=== PATIENT | male | born 1940 | race Caucasian/White ===

== ENCOUNTER → 2017-10-25 | Outpatient (CLI) | payer OTHER ==
--- NOTE | 2017-10-25 15:59 | RAD ---
Right knee, 3 views, 10/25/2017: HISTORY: Osteoarthritis There is mild narrowing of the lateral compartment of the knee joint with mild marginal spurring. Mild spurring is present the patellofemoral articulation. No fracture or dislocation is identified. No significant joint effusion is seen. Moderate scattered arterial calcifications are present. IMPRESSION: 1. Mild degenerative change. 2. No acute bony abnormality is detected. Chest, 2 views, 10/25/2017: HISTORY: Cough, COPD The heart size and pulmonary vascularity are normal. There is mild tortuosity of the thoracic aorta. No pulmonary infiltrate is seen. There is no evidence of pleural fluid. Nodular shadows projected over the lung bases are probably nipple shadows. Mild spurring is present in the spine. IMPRESSION: No acute cardiopulmonary abnormality is detected. Electronically signed by: Corey Conde MD (10/25/2017 3:56 PM) [facility]
== END | disposition home or self-care (01) ==
LOC: DXRAD 09:15
PROVIDERS: ATTEND Physician Assistant Medical
DX: M17.11 Unilateral primary osteoarthritis, right knee (principal); J44.9 Chronic obstructive pulmonary disease, unspecified; K21.9 Gastro-esophageal reflux disease without esophagitis
CPT/HCPCS: 71046; 73562

== ENCOUNTER → 2018-07-31 | Outpatient (CLI) | payer OTHER ==
--- NOTE | 2018-07-31 14:26 | RAD ---
Chest, 2 views, 07/31/2018: HISTORY: Weight loss Comparison is made to a study from 10/25/2017. The heart size is within normal limits. There is mild tortuosity of the thoracic aorta. There is minimal linear scarring or atelectasis in the posterior costophrenic angle on the right. No pulmonary consolidation is seen. There is no evidence of pleural fluid. Mild scattered spurs are present in the spine. IMPRESSION: Minimal right basilar linear scarring or atelectasis. Electronically signed by: Corey Conde MD (07/31/2018 2:23 PM) [facility]
== END | disposition home or self-care (01) ==
LOC: DXRAD 10:36
PROVIDERS: ATTEND Family Medicine
DX: I77.89 Other specified disorders of arteries and arterioles (principal); R63.4 Abnormal weight loss
CPT/HCPCS: 71046

== ENCOUNTER → 2018-08-03 | Outpatient (CLI) | payer OTHER ==
[2018-08-03 10:15] LABS: ALBUMIN 3.9 g/dL (3.4-5.0); ALBUMIN/GLOBULIN RATIO 1.1 (1.0-1.7); CREATININE 0.8 mg/dL (0.7-1.3); GFR 93.7; POTASSIUM 3.7 mmol/L (3.5-5.1); TOTAL BILIRUBIN 1.3 mg/dL (0.2-1.0); TOTAL PROTEIN 7.6 g/dL (6.4-8.2)
--- NOTE | 2018-08-03 12:58 | RAD ---
Complete abdominal ultrasound 08/03/2018 10:00 AM Clinical History: Nausea, abdominal pain, weight loss Technique: Ultrasound examination of the abdomen was performed, and multiple static images were submitted for review. Comparison: CT of the abdomen and pelvis July 25, 2012 Findings: Pancreas is poorly visualized. Portions of the aorta and IVC are grossly unremarkable. The gallbladder is partially visualized. Visualized portions of the gallbladder demonstrates no wall thickening, or stones. The common bile duct is within normal limits measuring 4 mm diameter. The liver appears to be normal in size measuring approximately 14.5 cm longitudinally. No focal hepatic lesions are seen. No biliary dilatation is identified. The right kidney is unremarkable in appearance measuring 12.6 cm in length. Left kidney is normal in appearance. The spleen is top normal measuring 11.8 cm longitudinal. IMPRESSION: 1. No acute intra-abdominal abnormality is identified 2. Top normal size of the spleen Electronically signed by: David Hung MD (08/03/2018 12:55 PM) [id number]
[2018-08-03 14:05] LABS: BACTERIA,URINE 0 /HPF (0-FEW); BILIRUBIN,URINE SMALL (NEG); CLARITY,URINE HAZY; COLOR,URINE AMBER; GLUCOSE,URINE NEG (NEG); NITRITE,URINE POS (NEG); RBC,URINE 0 /HPF (0-2); SQUAMOUS EPITHELIAL CELL,UR OCC /LPF; UROBILINOGEN,URINE 0.2 mg/dL (0.2 mg/dL); WBC,URINE 0 /HPF (0-4)
== END | disposition home or self-care (01) ==
LOC: US 09:34
PROVIDERS: ATTEND Internal Medicine Gastroenterology
DX: R11.0 Nausea (principal); R63.4 Abnormal weight loss; R10.9 Unspecified abdominal pain
CPT/HCPCS: 36415; 76700; 80053; 81001; 82140; 82150; 83690; 87086

== ENCOUNTER → 2018-08-10 | Outpatient (CLI) | payer OTHER ==
[~2018-08-10] MED LIST: IOHEXOL 240 MG/ML 50ML VIAL. ONE; IOHEXOL 300 MG/ML 75 ML VIAL. IV ONE
--- NOTE | 2018-08-10 16:15 | RAD ---
CT of the abdomen and pelvis with contrast, 08/10/2018: HISTORY: Abdominal pain, weight loss, nausea and vomiting Multidetector CT imaging was performed following oral and IV administration of contrast. There is mild bibasilar linear scarring and/or atelectasis. Coronary artery calcifications are noted. There appear to be calcifications in the region of the aortic valve as well as the mitral annulus. No hepatic abnormality is seen. The gallbladder is unremarkable. No pancreatic abnormality is seen. The spleen is at the upper limits of normal in size measuring 12.7 cm in length. It contains several calcifications. No renal abnormality is detected. There is moderate calcific plaquing of the abdominal aorta and its branches without evidence of aneurysm. No abdominal or pelvic adenopathy is seen. The prostate gland is enlarged measuring 6 cm in length. It contains calcifications. Colonic diverticula are present, most extensive in the sigmoid region. No paracolonic inflammatory process is seen. The bowel loops are not dilated. The appendix shows no abnormality. No free fluid or free air is evident in the abdomen or pelvis. There is a mild thoracolumbar scoliosis with moderate multilevel degenerative change. IMPRESSION: 1. Extensive sigmoid diverticulosis. 2. Nonspecific prostatic enlargement. 3. Calcific plaquing of the coronary arteries and the aortic valve. PQRS Compliance Statement: One or more of the following individualized dose reduction techniques were utilized for this examination: 1. Automated exposure control 2. Adjustment of the mA and/or kV according to patient size 3. Use of iterative reconstruction technique Electronically signed by: Corey Conde MD (08/10/2018 4:12 PM) [facility]
[2018-08-13 17:08] LABS: MITOCHONDRIAL ABDY <20.0 Units (0.0-20.0)
[2018-08-14 19:07] LABS: ANA INTERP Positive (.)
== END | disposition home or self-care (01) ==
LOC: CT 08:40
PROVIDERS: ATTEND Internal Medicine Gastroenterology
DX: K57.30 Diverticulosis of large intestine without perforation or abscess without bleeding (principal); N40.0 Benign prostatic hyperplasia without lower urinary tract symptoms; I70.0 Atherosclerosis of aorta; I25.10 Atherosclerotic heart disease of native coronary artery without angina pectoris; M41.85 Other forms of scoliosis, thoracolumbar region
CPT/HCPCS: 36415; 74177; 83520; 86038; 86705; 86709; 86803; 87340; Q9967; 83516

== ENCOUNTER 2020-10-09 16:52 | Emergency (ER) | payer MEDICARE, OTHER ==
[~2020-10-09] VITALS: Ht 175.3 cm; Wt 77.3 kg
[2020-10-09 16:59] VITALS: BP 145/76
--- NOTE | 2020-10-09 17:16 | PHYS DOC ---
Past History Past Surgical History: No Surgical History (LEIDY JO APRN) Alcohol Use: None (LEIDY JO APRN) Adult General Chief Complaint Chief Complaint: MECHANICAL FALL HPI HPI Patient is a 80-year-old male patient who presents with left shoulder pain after fall. Patient reports he had been in the yard today, working with his spouse, when he had slipped on the wet grass, and had fallen down landing on his left shoulder. States he was not able to get up without help of EMS, states he has no discomfort in his legs, hip, back. Only discomfort is to his left shoulder and left elbow. States he is able to move his right shoulder normally has had a previous rotator cuff surgery in his right shoulder. But has had no surgery to his left shoulder. Episode occurred approximately 1 hour ago. Denies any paresthesia. Does report he cannot raise his left arm and his pain when he tries to straighten his left elbow (LEIDY JO APRN) Review of Systems Review of Systems Constitutional: Denies fever or chills [] GI: Denies abdominal pain, nausea, vomiting, bloody stools or diarrhea [] : Denies dysuria or hematuria [] Musculoskeletal: Denies back pain or joint pain [] complains of pain to left shoulder, left elbow Integument: Denies rash or skin lesions [] Neurologic: Denies headache, focal weakness or sensory changes [] Endocrine: Denies polyuria or polydipsia [] All other systems were reviewed and found to be within normal limits, except as documented in this note. (LEIDY JO APRN) Allergies Allergies Allergies Coded Allergies Type Severity Reaction Last Updated Verified No Known Drug Allergies 08/10/18 No (LEIDY JO APRN) Physical Exam Physical Exam Constitutional: Well developed, well nourished, no acute distress, non-toxic appearance. [] Eyes: PERRLA, EOMI, conjunctiva normal, no discharge. [] Neck: Normal range of motion, no tenderness, supple, no stridor. [] Cardiovascular:Heart rate regular rhythm, no murmur [] Lungs & Thorax: Bilateral breath sounds clear to auscultation [] Abdomen: Bowel sounds normal, soft, no tenderness, no masses, no pulsatile masses. [] Skin: Warm, dry, no erythema, no rash. [] Back: No tenderness, no CVA tenderness. [] Extremities: No tenderness, no cyanosis, no clubbing, ROM intact, no edema. [] Decreased passive and active range of motion to left shoulder, left elbow. Radial pulse strong to left arm. Sensation to all digits. Able to move all digits. Left shoulder versus right shoulder appears asymmetric. No tenderness on palpation of scapula or clavicle. No tenting noted to skin or deformity visualized externally. Neurologic: Alert and oriented X 3, normal motor function, normal sensory function, no focal deficits noted. [] Psychologic: Affect normal, judgement normal, mood normal. [] (LEIDY JO APRN) Current Patient Data Vital Signs Vital Signs Date Time Temp Pulse Resp B/P (MAP) Pulse Ox O2 Delivery O2 Flow Rate FiO2 10/09/20 16:59 83 18 145/76 93 (LEIDY JO APRN) EKG EKG [] (LEIDY JO APRN) Radiology/Procedures Radiology/Procedures []R CHEST 1V Clinical History: Reason: fall, left shoulder fx / Spl. Instructions: / History: Technique: AP view of the chest was obtained at 10/09/2020 5:27 PM. Comparison: July 31, 2018. Findings: The cardiomediastinal silhouette is normal. The pulmonary vasculature is normal. Basilar linear opacities are seen previously. Impression: Chronic changes in the lung bases. No acute findings. Electronically signed by: Vicky Cohen III, MD (10/09/2020 5:49 PM) [facility] DICTATED AND SIGNED BY: VICKY COHEN III, MD DATE: 10/09/20 1747 CC: ZACHARY LARIOS MD; LEIDY JO APRN ~MTH0 0 XR SHOULDER_LEFT 2+ VIEWS DATE: 10/09/2020 5:14 PM INDICATION: fall, trauma COMPARISON: None. FINDINGS: Bones: Acute mildly displaced fracture of the proximal fibular diaphysis. Joints: Glenohumeral joint is congruent. Severe glenohumeral degenerative changes. Mild acromioclavicular degenerative changes. IMPRESSION: Acute mildly displaced proximal humeral diaphysis fracture Electronically signed by: Ashwin Figueroa MD (10/09/2020 5:45 PM) [facility] DICTATED AND SIGNED BY: ASHWIN FIGUEROA MD DATE: 10/09/201742 CC: ZACHARY LARIOS MD; LEIDY JO APRN ~MTH0 0 PROCEDURE: ELBOW LEFT 3V XR ELBOW COMPLETE_LEFT 3+VIEWS DATE: 10/09/2020 5:14 PM INDICATION: Reason: fall, trauma / Spl. Instructions: / History: COMPARISON: None. FINDINGS: Bones: There is no evidence of acute fracture or dislocation. Joints: Moderate degenerative changes of the elbow joint. There is no joint effusion. Miscellaneous: None. IMPRESSION: No acute fracture. Electronically signed by: Ashwin Figueroa MD (10/09/2020 5:48 PM) [facility] DICTATED AND SIGNED BY: ASHWIN FIGUEROA MD DATE: 10/09/201744 CC: ZACHARY LARIOS MD; LEIDY JO APRN ~MTH0 0 (LEIDY JO APRN) Heart Score C/O Chest Pain: N/A Risk Factors: Risk Factors: DM, Current or recent (<one month) smoker, HTN, HLP, family history of CAD, obesity. Risk Scores: Risk Factors: DM, Current or recent (<one month) smoker, HTN, HLP, family history of CAD, obesity. (LEIDY JO APRN) Course & Med Decision Making Course & Med Decision Making Pertinent Labs and Imaging studies reviewed. (See chart for details) [] Given history of fall with trauma to left shoulder, will do imaging at this time. Considerations include shoulder dislocation, numerous fracture, elbow dislocation, elbow fracture, contusion. No discomfort on palpation over body of humerus, however left versus right shoulder is asymmetric. Noting left humeral fracture, will place shoulder immobilizer, have patient follow-up with the evidence orthopedics. Patient with sensation intact to all digits, able to move all digits. Brisk cap refill to all digits. Discussed with patient spouse and patient, agreeable with plan to follow-up with orthopedics. (LEIDY JO APRN) Course & Med Decision Making I was the Attending physician on the above date of service of this patient. This patient was evaluated, examined, treated, and dispositioned from the emergency department by the mid-level practitioner. I disclosed need for close outpatient orthopedic follow-up. No emergent surgical indication at present Electronically signed, Ondina Lawler DO (ONDINA LAWLER DO) Scooby Disclaimer Scooby Disclaimer This electronic medical record was generated, in whole or in part, using a voice recognition dictation system. (LEIDY JO APRN) Departure Departure: Impression: Primary Impression: Left humeral fracture Disposition: HOME / SELF CARE / HOMELESS Condition: GOOD Referrals: HOWIE WINSTON (PCP) [facility] Patient Instructions: Shoulder Fracture (Proximal Humerus or Glenoid)-[facility] Additional Instructions: As discussed, take tylenol / ibuprofen / pain medications as needed for discomfort Keep his arm in the splint until released by Orthopedics Follow up with the Orthopedic clinic in the next week Problem Qualifiers Primary Impression: Left humeral fracture Encounter type: initial encounter Humerus Location: proximal Fracture type: closed Fracture morphology: other fracture Fracture alignment: displaced Qualified Codes: S42.292A - Other displaced fracture of upper end of left humerus, initial encounter for closed fracture LEIDY JO APRN Oct 09, 2020 17:16 ONDINA LAWLER DO Oct 11, 2020 06:10
--- NOTE | 2020-10-09 17:47 | RAD ---
XR SHOULDER_LEFT 2+ VIEWS DATE: 10/09/2020 5:14 PM INDICATION: fall, trauma COMPARISON: None. FINDINGS: Bones: Acute mildly displaced fracture of the proximal fibular diaphysis. Joints: Glenohumeral joint is congruent. Severe glenohumeral degenerative changes. Mild acromioclavic ular degenerative changes. IMPRESSION: Acute mildly displaced proximal humeral diaphysis fracture Electronically signed by: Nabil Figueroa MD (10/09/2020 5:45 PM) [facility]
--- NOTE | 2020-10-09 17:50 | RAD ---
XR ELBOW COMPLETE_LEFT 3+VIEWS DATE: 10/09/2020 5:14 PM INDICATION: Reason: fall, trauma / Spl. Instructions: / History: COMPARISON: None. FINDINGS: Bones: There is no evidence of acute fracture or dislocation. Joints: Moderate degenerative changes of the elbow joint. There is no joint effusion. Miscellaneous: None. IMPRESSION: No acute fracture. Electronically signed by: Nabil Figueroa MD (10/09/2020 5:48 PM) [facility]
--- NOTE | 2020-10-09 17:51 | RAD ---
XR CHEST 1V Clinical History: Reason: fall, left shoulder fx / Spl. Instructions: / History: Technique: AP view of the chest was obtained at 10/09/2020 5:27 PM. Comparison: July 31, 2018. Findings: The cardiomediastinal silhouette is normal. The pulmonary vasculature is normal. Basilar linear opaci ties are seen previously. Impression: Chronic changes in the lung bases. No acute findings. Electronically signed by: Brayan Brandon III, MD (10/09/2020 5:49 PM) [facility]
== END 2020-10-09 18:21 | disposition home or self-care (01) ==
LOC: ER 16:52
DX: S42.302A Unspecified fracture of shaft of humerus, left arm, initial encounter for closed fracture (principal); W01.0XXA Fall on same level from slipping, tripping and stumbling without subsequent striking against object, initial encounter; Y93.89 Activity, other specified; Y92.89 Other specified places as the place of occurrence of the external cause; Y99.8 Other external cause status
CPT/HCPCS: 29105; 71045; 73030; 73080; 99284-25